=== PATIENT | male | born 1995 | race Two or more races ===

== ENCOUNTER 2020-11-26 12:04 | Emergency (ER) | payer OTHER ==
[2020-11-26 13:01] LABS: HEMOGLOBIN 14.4 gm/dl (14.0-17.5); RED BLOOD COUNT 4.49 M/UL (4.20-5.50); WHITE BLOOD COUNT 5.5 K/UL (4.5-11.0)
[2020-11-26 13:20] LABS: BUN/CREATININE RATIO 16 (0-10)
[2020-11-26] MEDS ORDERED: BENTYL 20MG TAB20 MG PO (14:56)
[2020-11-26] MEDS ORDERED: COLACE 100MG C100 MG PO (15:09)
== END 2020-11-26 16:08 | disposition home or self-care (01) ==
LOC: ER1 12:04
PROVIDERS: Physician Assistant
DX: K76.9 Liver disease, unspecified (principal); K62.5 Hemorrhage of anus and rectum
CPT/HCPCS: 80053; 81001; 83690; 85025; 99284; Q9967